=== PATIENT | female | born 1960 | race Caucasian/White ===

== ENCOUNTER → 2020-08-20 | Outpatient (CLI) | payer BC ==
[~2020-08-20] MED LIST: ATOR40TA59 PO; BUPR100T11 PO; CYCL10TA2 PO; LISI2.5T PO; METF500T16 PO; NAPR-514 PO; PHEN1CAP PO
== END ==
LOC: LAB 10:34
PROVIDERS: ATTEND Obstetrics & Gynecology
DX: Z01.812 Encounter for preprocedural laboratory examination (principal); N95.0 Postmenopausal bleeding; Z20.828 Contact with and (suspected) exposure to other viral communicable diseases
CPT/HCPCS: U0003

== ENCOUNTER 2020-08-27 07:08 | Day surgery (SDC) | payer BC ==
[~2020-08-27 07:08] MED LIST changes: +HYDROmorphone 2 MG/ML VIAL IV PRN; +IV RINGERS,LACTATED 1000ML 1,000 ML IV SCH; +LIDOCAINE 1% PF 2 ML VIAL. ID PRN; +MORPHINE SULFATE 2 MG/ML VIAL. IV PRN; +ONDANSETRON PF 4 MG/2 ML VIAL. IV PRN; +PROCHLORPERAZINE 10 MG/2 ML VIAL. IV PRN; +fentaNYL PF VIAL 100 MCG/2 ML VIAL IV PRN
[2020-08-27] MEDS ORDERED: INSULIN LISPRO 100 UNIT/ML 3ML VIAL for OP,RR ONLY. SQ PRN (07:45)
[2020-08-27] MEDS ORDERED: INSULIN LISPRO 100 UNIT/ML 3ML VIAL for OP,RR ONLY. SQ ONE (08:00)
[2020-08-27] MEDS ORDERED: LIDOCAINE 2% PF 5 ML VIAL. ONE (08:08)
[2020-08-27] MEDS ORDERED: ONDANSETRON PF 4 MG/2 ML VIAL. ONE (08:08)
[2020-08-27] MEDS ORDERED: DEXAMETHASONE SOD PHOS 4 MG/ML VIAL ONE (08:08)
[2020-08-27] MEDS ORDERED: PROPOFOL 10 MG/ML (20ML) VIAL. IV ONE (08:08)
[2020-08-27] MEDS ORDERED: SUCCINYLCHOLINE 200 MG/10 ML VIAL. ONE (08:08)
[2020-08-27] MEDS ORDERED: fentaNYL PF VIAL 100 MCG/2 ML VIAL ONE (08:09)
[2020-08-27] MEDS ORDERED: SEVOFLURANE 31 TO 60 MINUTES. IH ONE (08:59)
--- NOTE | 2020-08-27 09:53 | PDOC ---
BRIEF OPERATIVE NOTE Date: Aug 27, 2020 Pre-Op Diagnosis PMB with endometrial thickening on sonogram Post-Op Diagnosis same Procedure Performed hysteroscopy D&C with sonya clear Surgeon Dr. Tolbert Anesthesiologist Dr. Montiel Anesthesia Type: General Blood Loss 10cc IV Fluid see anesthesia Urine Output 150cc straight cath prior to procedure Specimens Obtained endometrial currettings Findings uterus sounded to 8cm abundant thickened white fluffy tissue used 4000cc of fluid and >3800 accounted for in canisters at the end of the procedure and some on floor so <200cc deficit Complications none Operative Note [id number] JASON TOLBERT MD Aug 27, 2020 09:53
[2020-08-27] MEDS ORDERED: diphenhydrAMINE 50 MG/ML VIAL IV PRN (10:00)
[2020-08-27] MEDS ORDERED: SIMETHICONE 80 MG TAB.CHEW PO PRN (10:00)
[2020-08-27] MEDS ORDERED: MAG HYDROX/ALUMINUM HYD/SIMETH 30 ML ORAL.SUSP PO PRN (10:00)
[2020-08-27] MEDS ORDERED: diphenhydrAMINE HCL 25 MG CAPSULE PO PRN (10:00)
[2020-08-27] MEDS ORDERED: HYDROcodone/APAP 5/325MG 1 TAB TABLET PO PRN (10:00)
[2020-08-27] MEDS ORDERED: CALCIUM CARBONATE 500 MG TAB.CHEW PO PRN (10:00)
[2020-08-27] MEDS ORDERED: 0.9 % SODIUM CHLORIDE 10 ML DISP.SYRIN. IV PRN (10:00)
[2020-08-27] MEDS ORDERED: NALOXONE 0.4 MG/ML VIAL. IV PRN (10:00)
--- NOTE | 2020-08-27 10:06 | OP ---
DATE OF SURGERY: 08/27/2020 PREOPERATIVE DIAGNOSES: Postmenopausal bleeding and endometrial thickening on sonogram. POSTOPERATIVE DIAGNOSES: Postmenopausal bleeding and endometrial thickening on sonogram. PROCEDURES: Hysteroscopy, D and C with TruClear. SURGEON: Jason Tolbert MD [employer]ER/AIR OFFICER: OR personnel. ANESTHESIA: Dr. Montiel. ANESTHESIA TYPE: General. BLOOD LOSS: 10 mL. URINE OUTPUT: 150 mL, straight cath prior to procedure. INTRAVENOUS FLUIDS: Please see anesthesia records. SPECIMEN: Endometrial curettings. COMPLICATIONS: None. DISPOSITION: Recovery room in stable condition. FINDINGS: A uterus that sounded to 8 cm with an abundant fluffy white tissue in the uterus. No discrete fibroids or polyps were observed or any abnormalities within the uterine cavity just the abundant thick white fluffy tissue. DESCRIPTION OF PROCEDURE: This patient was taken to the operating room where general anesthesia was placed. The patient was placed in dorsal lithotomy position in Jet stirrups. The patient's vagina was prepped and draped in the normal sterile fashion and a straight catheter urine was done prior to my arrival. Upon my arrival, a timeout was performed. Once everyone agreed on the patient, the site, the procedure, the procedure was initiated. A weighted speculum was placed in the patient's vagina. A single-tooth tenaculum was used to grasp the anterior lip of the cervix. She was dilated to a 6-7 with the Hegar dilators. She sounded to 7-8 cm. The scope was primed and placed in with the above findings. The soft tissue shaver was obtained and an endometrial curetting was performed under direct visualization. It was just abundant white fluffy tissue. We did get a good specimen. Once this was done, the scope was removed. The tenaculum was removed. There was no active bleeding. The weighted speculum was removed and the procedure was ended. The patient was awakened from anesthesia and brought to recovery room in stable condition. JASON TOLBERT MD DR: ALEX/josé antonio JOB#: [id number] / [id number]
[2020-08-27 10:30] VITALS: BP 135/65
--- NOTE | 2020-08-29 16:44 | PATHOLOGY ---
[facility] Accession Number: [id number] . 01 Material submitted: . endometrium - ENDOMETRIAL CURETTINGS . 01 Clinical history: . PELVIC PAIN, AUB . 02 Diagnosis: Endometrial curettings: - Disordered proliferative endometrium. [facility] S 08/29/2020 1001 Local . 02 Comment: There is no evidence of hyperplasia, atypia, or malignancy. (JPM:sabino; 08/29/2020) . 02 Electronically signed: . Pete Colorado MD, Pathologist NPI- [id number] . 01 Gross description: . Received in formalin labeled "Tristan, Estela, endometrial curettings" is a 2.8 x 2.3 x 0.3 cm aggregate of red-brown friable soft tissue fragments. The specimen is submitted entirely in A1. ([facility] [place]; 08/28/2020) [facility] 08/28/2020 1424 Local . 02 Pathologist provided ICD-10: N85.9, R10.2, N93.9 . 02 CPT . 337458 Specimen Comment: A courtesy copy of this report has been sent to [phone] Specimen Comment: [id number] Specimen Comment: Report sent to / DR GREENE Performed at: 01 [facility] [address], [place] [id number] MD Delvis Fields MD Phone: [phone] Performed at: 02 [facility] [address] [place], [place] [id number] MD Pete Colorado MD Phone: [phone]
--- NOTE | 2020-08-29 16:45 | PATHOLOGY ---
[facility] Accession Number: [id number] . 01 Material submitted: . endometrium - ENDOMETRIAL CURETTINGS . 01 Clinical history: . POSTMENOPAUSAL BLEEDING . 02 Diagnosis: Endometrial curettings: - Endometrioid adenocarcinoma, FIGO Grade 1, with focal squamous differentiation. (JPM:sabino; 08/29/2020) S 08/29/2020 1056 Local . 02 Comment: Sections of the endometrial curettings reveal an endometrioid adenocarcinoma, FIGO Grade 1, nuclear grade 1, with foci of squamous differentiation. The case is also examined by Dr. Hernandez, who concurs with the diagnosis. The results are reported to Dr. Priscilla Golden's nurse on 08/29/2020 at 3:45 PM. (JPM:sabino; 08/29/2020) . 02 Electronically signed: . Pete Colorado MD, Pathologist NPI- [id number] . 01 Gross description: . Received in formalin labeled "Ingrid Mc, endometrial curettings" is a 2.7 x 2.7 x 0.5 cm aggregate of bear-white friable soft tissue fragments. The specimen is submitted entirely in A1. ([facility]; 08/28/2020) [facility] 08/28/2020 1425 Local . 02 Pathologist provided ICD-10: C54.1 . 02 CPT . 023597 Specimen Comment: A courtesy copy of this report has been sent to [phone] Specimen Comment: [phone] Specimen Comment: Report sent to / DR HEAD Performed at: [address], [place], [place] [id number] MD Delvis Fields MD Phone: [phone] Performed at: 02 [facility] [address] [place], [place] [id number] MD Pete Colorado MD Phone: [phone]
== END 2020-08-27 11:40 | disposition home or self-care (01) ==
LOC: SURG 07:08
PROVIDERS: ATTEND Obstetrics & Gynecology
DX: N95.0 Postmenopausal bleeding (principal); C54.1 Malignant neoplasm of endometrium; R93.89 Abnormal findings on diagnostic imaging of other specified body structures; N85.9 Noninflammatory disorder of uterus, unspecified; I10 Essential (primary) hypertension; E78.00 Pure hypercholesterolemia, unspecified; K21.9 Gastro-esophageal reflux disease without esophagitis; E66.9 Obesity, unspecified; M19.90 Unspecified osteoarthritis, unspecified site; G47.30 Sleep apnea, unspecified; E11.9 Type 2 diabetes mellitus without complications; F41.9 Anxiety disorder, unspecified; F32.9 Major depressive disorder, single episode, unspecified; Z90.49 Acquired absence of other specified parts of digestive tract; Z98.51 Tubal ligation status; Z98.890 Other specified postprocedural states; Z79.82 Long term (current) use of aspirin; Z79.899 Other long term (current) drug therapy; Z79.84 Long term (current) use of oral hypoglycemic drugs; Z87.891 Personal history of nicotine dependence
CPT/HCPCS: 58558; 82962; J0330; J1100; J1815; J2405; J2704; J3010